=== PATIENT | male | born 1990 | race African-American/Black ===

== ENCOUNTER 2018-03-21 14:59 | Emergency (ER) | payer SELFPAY ==
[~2018-03-21] VITALS: Ht 175.3 cm; Wt 113.5 kg
[2018-03-21 15:08] VITALS: BP 156/96
--- NOTE | 2018-03-21 15:50 | NUR ---
PT AMBULATED TO ER BED 01
--- NOTE | 2018-03-21 15:57 | NUR ---
27 YO M BIB SELF W/ C/O SORE THROAT, SOB, COUGH, ASTHMA X 2 WEEKS. PT WENT TO URGENT CARE AND WAS TOLD IF SYMPTOMS PERSISTED TO GO TO ER. PT STATES NO RELIEF OF SYMPTOMS, WAS TOLD HE HAD STREP THROAT. DENIES N/V, REPORTS INTERMITTENT FEVER. RR EVEN AND UNLABORED, LUNGS BL CLEAR. IBUPROFEN LAST TAKEN AT 0800 TODAY W/ INHALER. PT SPEAKING IN FULL, COMPLETE SENTENCES. AAOX4. VSS. BED DOWN. BEDRIAL UP X 1. ER MD AWARE AND NOTIFIED OF PT STATUS. HX: ASTHMA RX: INHALER
[2018-03-21 16:47] VITALS: BP 149/91
== END 2018-03-21 16:46 | disposition home or self-care (01) ==
LOC: MED 14:59
DX: J02.9 Acute pharyngitis, unspecified (principal); R06.02 Shortness of breath; J45.909 Unspecified asthma, uncomplicated
CPT/HCPCS: 36415; 87081; 87804; 99283